=== PATIENT | female | born 1970 | race American Indian/Alaskan Native ===

== ENCOUNTER 2020-12-27 10:03 | Outpatient (CLI) | payer OTHER ==
--- NOTE | 2020-12-27 11:16 | XRay Report ---
XR spine lumbosacral 2-3V HISTORY: BACK PAIN COMPARISON: None. TECHNIQUE: 3 view(s) of the lumbar spine obtained. FINDINGS: Vertebrae: Minimal leftward curvature with apex at L3. No listhesis. Vertebral body heights are prese rved. Spondylosis:Disc space heights are preserved. IMPRESSION: 1. No significant abnormality of the lumbar spine. Signer Name: Maulik Maxwell MD Signed: 12/27/2020 11:12 AM Workstation Name: [email or web address]
--- NOTE | 2020-12-27 11:18 | XRay Report ---
XR shoulder BILAT 2+V INDICATION / CLINICAL INFORMATION: BILATERAL SHOULDER PAIN. COMPARISON: None available. FINDINGS: No acute fracture. Normal alignment. Joint spaces are preserved. No destructive osseous lesion or s uspicious periosteal reaction. Impression: 1.No significant osseous abnormality. Signer Name: Maulik Maxwell MD Signed: 12/27/2020 11:13 AM Workstation Name: [email or web address]
== END 2020-12-27 10:04 | disposition home or self-care (01) ==
LOC: XRAY 10:03
PROVIDERS: ATTEND Internal Medicine
DX: M47.817 Spondylosis without myelopathy or radiculopathy, lumbosacral region (principal); M25.512 Pain in left shoulder; M25.511 Pain in right shoulder
CPT/HCPCS: 72100